=== PATIENT | female | born 1995 | race Caucasian/White ===

== ENCOUNTER 2016-09-27 15:33 | Emergency (ER) | payer OTHER, BC ==
[~2016-09-27] VITALS: Ht 152.4 cm; Wt 50.0 kg
[2016-09-27 15:34] VITALS: BP 122/57; TEMP 98.1
[2016-09-27] MEDS ORDERED: BIRTH CONTROL PO (15:39)
[2016-09-27 16:59] VITALS: PULSE 69
== END 2016-09-27 17:02 | disposition home or self-care (01) ==
LOC: COL.ER 15:33
DX: S06.0X0A Concussion without loss of consciousness, initial encounter (principal); S16.1XXA Strain of muscle, fascia and tendon at neck level, initial encounter; V43.52XA Car driver injured in collision with other type car in traffic accident, initial encounter; Y92.410 Unspecified street and highway as the place of occurrence of the external cause